=== PATIENT | female | born 1985 | race Hispanic/Latino ===

== ENCOUNTER 2017-05-31 18:36 | Day surgery (SDC) | payer OTHER ==
[2017-05-31 19:05] VITALS: BP 123/70; TEMP 99.2
--- NOTE | 2017-05-31 19:35 | PDOC.LDHP ---
Labor and Delivery H&P Chief complaint: abdominal pain HPI: 31 yo at 21.4 presents with complaint of abdominal pain and n/v for 2 days. Associated symptoms include urinary back pain, frequency and dysuria. She was treated with macrobid within the past 2 weeks for a UTI. She denies fever, vaginal blood or other discharge. Current gestational age (weeks): 21 (21.4) Due date: 10/07/17 Grav: 4 Para: 3 Current complications: none Current medications: pre-marilu vitamins Social history: none - Physical Exam Vital signs reviewed and normal: yes General: resting Heart: RRR Lungs: CTAB Abdomen: gravid (Mild suprapubic tenderness. Uterine fundus non tender. No palpable contractions) Extremeties: no edema - Assessment Concern for UTI vs pyelo. Ddx also includes gastroenteritis - Plan -: Will order UA, pending results treat with abx and consider renal imaging Zofran for n/v <Bridger Ferguson - Last Filed: 05/31/17 19:33> <Hitesh Allen - Last Filed: 06/29/17 14:34> Allergies/Adverse Reactions: Allergies Allergy/AdvReac Type Severity Reaction Status Date / Time No Known Allergies Allergy Verified 05/31/17 20:18 Attending Addendum - Attending Addendum Date/Time: 06/29/17 1432 I personally evaluated the patient and discussed the management with Dr. Ferguson on 05/31/17. I agree with the History, Examination, Assessment and Plan documented above with any addition or exceptions noted below. 31 yo at 21.4 wks EGA with recent UTI treated with Macrobid here with abdominal pain, Nausea for evaluation for AGE vs. Biliary Colic vs. persistent UTI. Check UA and RUQ US. <Hitesh Allen - Last Filed: 06/29/17 14:34>
[2017-05-31 19:36] VITALS: BMI 36.3
[2017-05-31] MEDS ORDERED: Ondansetron ODT 4 MG TAB PO PRN (19:50)
[2017-05-31 20:13] LABS: Bilirubin Negative (Negative); Blood, Urine Negative (Negative); Clarity CLEAR (Clear); Glucose, Urine (Dipstick) Negative (Negative); Leukocyte Negative (Negative); Nitrite Negative (Negative); Protein, Urine (Dipstick) Negative (Neg-Trace); Specific Gravity, Urine 1.006 (1.002-1.036); Urobilinogen 0.2 mg/dL (0.2-1.0)
[2017-05-31 21:45] LABS: #Eosinphils 0.2 thou/uL (0.0-0.7); #Lymphocytes 0.9 thou/uL (1.20-3.40); #Monocytes 0.6 thou/uL (0.11-0.59); #Neutrophils 5.3 thou/uL (1.40-6.50); %Basophils 0.7 % (0.0-1.0); %Eosinophils 2.3 % (0.0-10.0); %Lymphocytes 13.1 % (21.0-51.0); %Monocytes 8.2 % (0.0-10.0); %Neutrophils 75.8 % (42.0-75.0); Hemoglobin 10.8 g/dL (12.0-16.0); Mean Corpuscular HGB CONC 33.7 g/dL (32.0-36.0); Mean Corpuscular Hemoglobin 28.8 pg (27.0-31.0); Mean Corpuscular Volume 85.4 fl (81.0-99.0); Mean Platelet Volume 6.6 fL (7.4-10.4); Platelet Count 206 thou/uL (130-400); RBC Distribution Width 12.3 % (11.5-14.5); Red Blood Cell (RBC) Count 3.76 mill/uL (4.20-5.40); White Blood Cell (WBC) Count 6.9 thou/uL (4.8-10.8)
[2017-05-31 22:08] LABS: ALT (SGPT) 12 U/L (8-55); AST (SGOT) 12 U/L (5-34); Albumin 3.4 g/dL (3.5-5.0); Alkaline Phosphatase 83 U/L (40-150); Anion Gap 10 mmol/L (10-20); BUN (Urea Nitrogen) Less than 4 mg/dL (7.0-18.7); Bilirubin, Total 0.3 mg/dL (0.2-1.2); Calc. Creatinine Clearance 260 mL/min (70-130); Calcium 8.7 mg/dL (7.8-10.44); Carbon Dioxide 22 mmol/L (22-29); Chloride 106 mmol/L (98-107); Estimated GFR-MDRD Greater than 90; Globulin 3.2 g/dL (2.4-3.5); Glucose 96 mg/dL (70-105); Potassium 3.2 mmol/L (3.5-5.1); Protein, Total 6.6 g/dL (6.0-8.3); Sodium 135 mmol/L (136-145)
[2017-05-31] MEDS ORDERED: Acetaminophen 500 MG TAB PO SCH (22:30)
--- NOTE | 2017-06-01 00:07 | ULT ---
RIGHT UPPER QUADRANT ULTRASOUND 05/31/17 CLINICAL HISTORY: Abdominal pain. Biliary colic. FINDINGS: There is no focal hepatic lesion. Low level echoes of the gallbladder lumen are present which may be on the basis of sludge and/or gravel-like cholelithiasis. Badillo's sign report is negative by the son ographer. Common duct is normal measuring 4 mm in diameter. Incidental note of mild prominence of the right renal collecting system of indeterminate etiology. IMPRESSION: 1. Findings which may be related to gallbladder sludge and/or noncalcified gravel-like cholelith iasis. 2. Mild prominence of right renal collection system. Correlate clinically. POS: [facility]
--- NOTE | 2017-06-01 01:01 | PDOC.LDPN ---
Labor & Delivery Progress Note - Subjective Subjective: comfortable - Objective Vital signs reviewed and normal: yes General: NAD, resting Uterine fundus: non tender - Assessment (1) Gastroenteritis Code(s): K52.9 - NONINFECTIVE GASTROENTERITIS AND COLITIS, UNSPECIFIED Current Visit: Yes Status: Acute Comment: Most likely viral in nature. Discussed the importance of oral hydration. Return if pain worsens or if new symptoms develop. US shows possible gallbladder sludge, non dilated CBD.
== END 2017-06-01 01:15 | disposition home or self-care (01) ==
LOC: L&D/OP 18:36
PROVIDERS: ATTEND Family Medicine
DX: O99.612 Diseases of the digestive system complicating pregnancy, second trimester (principal); K52.9 Noninfective gastroenteritis and colitis, unspecified; Z3A.21 21 weeks gestation of pregnancy; Z79.899 Other long term (current) drug therapy
CPT/HCPCS: 51701; 76705; 80053; 81003; 85025; 87086; 96360; 99284; Q0162

== ENCOUNTER 2017-10-09 04:23 | Inpatient (IN) | payer MEDICAID, OTHER, SELFPAY ==
[2017-10-09 04:57] VITALS: BMI 39.2
[2017-10-09] MEDS ORDERED: Diphenoxylate HCl/Atropine Tablet PO PRN (04:59)
[2017-10-09] MEDS ORDERED: Ibuprofen 800 MG TAB PO PRN (04:59)
[2017-10-09] MEDS ORDERED: Methylergonovine 0.2 MG/ML VIAL IM PRN (04:59)
[2017-10-09] MEDS ORDERED: Lidocaine 1% (PF) 30 ML VIAL SC PRN (04:59)
[2017-10-09] MEDS ORDERED: NS / Oxytocin 40 units/1000ml 1,000 ML IV PRN (04:59)
[2017-10-09] MEDS ORDERED: Misoprostol 200 MCG TAB PR PRN (04:59)
[2017-10-09] MEDS ORDERED: Carboprost 250 MCG/ML AMP IM PRN (04:59)
[2017-10-09] MEDS ORDERED: Ondansetron HCl/PF 4 MG/2 ML Vial IVP PRN (05:09)
[2017-10-09] MEDS ORDERED: Promethazine HCl 25 MG/ML VIAL IM PRN (05:09)
[2017-10-09] MEDS ORDERED: Lactated Ringer's 1,000 ML IV SCH (05:15)
[2017-10-09 05:42] LABS: Hemoglobin 11.8 g/dL (12.0-16.0); Mean Corpuscular HGB CONC 34.9 g/dL (32.0-36.0); Mean Corpuscular Hemoglobin 29.9 pg (27.0-31.0); Mean Corpuscular Volume 85.7 fL (78.0-98.0); Mean Platelet Volume 6.7 fL (7.4-10.4); Platelet Count 214 thou/uL (130-400); RBC Distribution Width 12.5 % (11.5-14.5); Red Blood Cell (RBC) Count 3.95 mill/uL (4.20-5.40); White Blood Cell (WBC) Count 8.8 thou/uL (4.8-10.8)
[2017-10-09 06:11] LABS: HBSAg Index 0.14 S/CO (0-0.99); Hep B Surf Ag Non-Reactive S/CO (NonReactive); Syphilis Antibody Nonreactive (Nonreactive); Syphilis Antibody Index 0.06 S/CO (<1.00 Non-Reactive)
--- NOTE | 2017-10-09 07:07 | PDOC.LDPN ---
Labor & Delivery Progress Note - Subjective Subjective: painful contractions - Objective Vital signs reviewed and normal: yes General: NAD Uterine fundus: non tender Dilation: 6 Effacement: 90% Station: -1 FHT: category 1 [place] contractions every: 2-3 -: 31 yo at 40.2 by 13.3 U/S admitted for labor. 1. SIUP, active labor -/-2 @ 04:44 with contractions q2-3min -/-1 @0700 with contractions q2-3 min -does not want epidural -Cat I tracing, GBS (-) -Fetus confirmed cephalic by sono, anterior placenta, grossly normal CATRACHITO 2. 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 will need follow up with Dr. Lay in 2 weeks if not required transfer. 3. Rubella non-immune -MMR post 4. BMI 39 -Recommend diet, exercise, breast feeding -Monitor/be prepared for labor complications including dystocias 5. Iron deficiency anemia -Currently taking ferrous sulfate 325mg, will continue as prescribed and needed 6. Threatened AB/First trimester VB -Resolved, no current concern
[2017-10-09] MEDS: Acetaminophen 500 MG TAB PO PRN ×3 (07:23→20:55)
--- NOTE | 2017-10-09 08:24 | PDOC.LDPN ---
Labor & Delivery Progress Note - Subjective Subjective: comfortable - Objective Vital signs reviewed and normal: yes General: NAD, resting Dilation: 8 Effacement: 100% Station: -1 FHT: category 1 [place] contractions every: 3-4min Other exam findings: FHT 140s, moderate variability, accels present, no decels Plan: continue plan of care -: 31 yo at 40.2 by 13.3 U/S admitted for labor. 1. SIUP, active labor -50/-2 @ 04:44 with contractions q2-3min -690/-1 @0700 with contractions q2-3 min -8100/-1 @0815 with contractions q3-4 min -does not want epidural -Cat I tracing, GBS (-) -Fetus confirmed cephalic by sono, anterior placenta, grossly normal [place]O 2. 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 will need follow up with Dr. Lay in 2 weeks if not required transfer. 3. Rubella non-immune -MMR post 4. BMI 39 -Recommend diet, exercise, breast feeding -Monitor/be prepared for labor complications including dystocias 5. Iron deficiency anemia -Currently taking ferrous sulfate 325mg, will continue as prescribed and needed 6. Threatened AB/First trimester VB -Resolved, no current concern
--- NOTE | 2017-10-09 09:05 | PDOC.OPDEL ---
OB Operative/Delivery Note Delivery Dr/Surgeon: Pepper Pastrana ([place]) Assist: Attending: Pope Nixon Pre-Delivery Diagnosis: active labor Procedure/Post Delivery Dx: spontaneous vaginal delivery Weeks gestation: 40 (40.2) Anesthesia: none - Findings A Sex: male - 1 min: 8 - 5 min: 9 - Additional Findings/Plan Placenta delivered: spontaneous Repaired Obstetrical Laceration: none Estimated blood loss: 250ml Compilations/Other Findings: Delivering Physician: Pepper Pastrana ([place]) Attending: Pope Nixon Procedure: Spontaneous Vaginal Delivery Anesthesia: none EBL: 250 ml Pre-op Diagnosis: 1. Term intrauterine in labor 2. Hx of iron deficiency anemia 3. rubella non-immune Post-op Diagnosis: 1. Term intrauterine , delivered 2. Hx of iron deficiency anemia 3. rubella non-immune Indications: A 31 y/o female now P4004 presents in active labor. Delivery Note: This is 31yo F now P4004 @40.2wks who delivered a viable M infant at 0845 on 10/09/2017. Following an uneventful antepartum course , a vigorous M was delivered over an intact perineum in the occipitoanterior position. Anterior Shoulder and then remainder of the body delivered. No nuchal cord. The head was held down and mouth and nares were bulb suctioned. Cord clamped and cut and cord blood collected. Placenta delivered intact via jenn mechanism with a 3 vessel cord noted. Fundal massage was performed and the fundus was firm. The cervix and vagina were inspected and found to be free of lacerations. Infant will be admitted to NICU for close monitoring regarding congenital pulmonary malformation. Apgars were 8/9 at 1 & 5 minutes, respectively. Patient tolerated delivery well and went to after routine recovery/care. Post delivery plan: routine recovery <Hitesh Joy - Last Filed: 10/09/17 09:17> Attending Addendum - Attending Addendum Date/Time: 10/12/17 9918 I was present and supervised the of a viable male infant to this 31 yo @ 40.2 weeks. Apgars 8/9. Placenta delivered spontaneously and intact; 3V cord. No epis or lacerations. EBL 250 Ml. and mother in stable condition. <Leonie Nixon - Last Filed: 10/12/17 23:18>
[2017-10-09] MEDS ORDERED: diphenhydrAMINE 25 MG CAP PO PRN (10:24)
[2017-10-09] MEDS ORDERED: Milk Of Magnesia 30 ML UDCUP PO PRN (10:24)
[2017-10-09] MEDS ORDERED: Bisacodyl 10 MG SUPP PR PRN (10:24)
[2017-10-09] MEDS ORDERED: Adacel (T-DAP) 0.5 ML VIAL IM ONE (10:24)
[2017-10-09] MEDS ORDERED: Measles/Mumps/Rubella 10 MCG/0.5 ML VIAL SC ONE (10:24)
[2017-10-09] MEDS ORDERED: NS / Oxytocin 40 units/1000ml 1,000 ML IV SCH (10:24)
[2017-10-09] MEDS ORDERED: Prenatal Vitamin 1 TAB PO SCH (10:45)
[2017-10-09] MEDS ORDERED: Ketorolac Tromethamine 30 MG/ML VIAL IVP SCH (10:45)
[2017-10-09] MEDS ORDERED: Docusate Calcium (SURFAK) 240 MG CAP PO SCH (10:45)
[2017-10-09] MEDS: Ibuprofen 800 MG TAB PO SCH ×2 (14:58→17:09)
[2017-10-09] MEDS: Ferrous Sulfate 325 MG TAB PO SCH (17:00)
[2017-10-09] MEDS: Docusate Calcium (SURFAK) 240 MG CAP PO SCH (20:55)
[2017-10-10] MEDS: Ibuprofen 800 MG TAB PO SCH ×4 (00:10→21:09)
--- NOTE | 2017-10-10 07:02 | PDOC.PP ---
Post Progress Note Post Day #: 1 Subjective: 31 yo now 4004 s/p yesterday at 845. No complications. EBL 250ml. Pt did well overnight. Pain controlled this am. PO intake tolerated: yes Flatus: yes Ambulation: yes Vital Signs (12 hours) Temp Pulse Resp BP 10/10/17 00:00 98.0 F 66 18 10/09/17 20:00 98.0 F 66 18 101/59 L Weight Weight 110.223 kg - Physical Examination General: NAD Cardiovascular: no m/r/g, RRR Respiratory: clear to auscultation bilaterally Abdominal: + bowel sounds, lochia (minimal) Fundus firm & at: umbilicus Neurological: no gross focal deficits Psychiatric: A&Ox3, normal affect Result Diagrams: 10/09/17 05:26 Additional Labs: Post Labs Blood Type A POSITIVE 10/09/17 05:26 Hep Bs Antigen Non-Reactive S/CO (NonReactive) 10/09/17 05:26 (1) BMI 39.0-39.9,adult Code(s): Z68.39 - BODY MASS INDEX (BMI) 39.0-39.9, ADULT Status: Acute (2) Iron deficiency anemia Code(s): D50.9 - IRON DEFICIENCY ANEMIA, UNSPECIFIED Status: Acute (3) , high-risk Code(s): O09.90 - SUPERVISION OF HIGH RISK , UNSP, UNSP TRIMESTER Status: Acute (4) Rubella non-immune status, antepartum Code(s): O99.89 - OTH DISEASES AND CONDITIONS COMPL PREG/CHLDBRTH; Z28.3 - UNDERIMMUNIZATION STATUS Status: Acute (5) Normal spontaneous vaginal delivery Code(s): O80 - ENCOUNTER FOR FULL-TERM UNCOMPLICATED DELIVERY Status: Acute - Assessment/Plan 31 yo at 40.2 by 13.3 U/S admitted for labor now s/p on 10/09 @ 845. 1. sIUP, active labor, delivered -PPD 1 -continue motrin scheduled and tylenol prn -encourage ambulation -tolerating a normal diet -passing flatus - infant and doing well. 2. 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 Rubella non-immune -MMR post 4. BMI 39 -Recommend healthy diet, exercise, breast feeding -Monitor/be prepared for labor complications including dystocias -LGA 5. Iron deficiency anemia -Currently taking ferrous sulfate 325mg, will continue as prescribed and needed 6. Threatened AB/First trimester VB -Resolved, no current concern <Pepper Bai - Last Filed: 10/11/17 09:09> Weight Weight 110.223 kg Result Diagrams: 10/09/17 05:26 Additional Labs: Post Labs Blood Type A POSITIVE 10/09/17 05:26 Hep Bs Antigen Non-Reactive S/CO (NonReactive) 10/09/17 05:26 <Leonie Nixon - Last Filed: 10/12/17 23:22> Attending Addendum - Attending Addendum Date/Time: 10/12/17 6989 I personally evaluated the patient and discussed the management with Dr. St on 10/10/2017 I agree with the History, Examination, Assessment and Plan documented above with any addition or exceptions noted below- Patient without complaints. Tolerating diet and ambulating. Afebrile VSS. 1) PPD#1 s/p - continue routine care. Plan to monitor till tomorrow due to CPAM in infant <Leonie Nixon - Last Filed: 10/12/17 23:22>
[2017-10-10] MEDS: Ferrous Sulfate 325 MG TAB PO SCH ×2 (07:22→15:56)
[2017-10-10] MEDS: Docusate Calcium (SURFAK) 240 MG CAP PO SCH ×2 (07:38→21:09)
[2017-10-10] MEDS: Prenatal Vitamin 1 TAB PO SCH (07:38)
[2017-10-11] MEDS ORDERED: HYDROcodone/Acetaminophen 5/325 mg Tablet PO SCH (03:45)
[2017-10-11] MEDS: Ibuprofen 800 MG TAB PO SCH (05:42)
--- NOTE | 2017-10-11 07:21 | PDOC.PP ---
Post Progress Note Post Day #: 2 Subjective: 31 yo -->4 s/p at 40.2 wks to a LGA male. Mom doing well. Mild pain this am. Mom would like the baby to follow-up at [facility] and she would like to follow-up there as well once she gets [facility]IP. She requested some ibuprofen sent in for pain prn. PO intake tolerated: yes Flatus: yes Ambulation: yes Vital Signs (12 hours) Temp Pulse Resp BP 10/10/17 20:00 98.2 F 71 16 110/75 Weight Weight 110.223 kg - Physical Examination General: NAD Cardiovascular: no m/r/g, RRR Respiratory: clear to auscultation bilaterally Abdominal: + bowel sounds, lochia (minimal) Fundus firm & at: umbilicus Neurological: no gross focal deficits Psychiatric: A&Ox3 Result Diagrams: 10/09/17 05:26 Additional Labs: Post Labs Blood Type A POSITIVE 10/09/17 05:26 Hep Bs Antigen Non-Reactive S/CO (NonReactive) 10/09/17 05:26 (1) BMI 39.0-39.9,adult Code(s): Z68.39 - BODY MASS INDEX (BMI) 39.0-39.9, ADULT Status: Acute (2) Iron deficiency anemia Code(s): D50.9 - IRON DEFICIENCY ANEMIA, UNSPECIFIED Status: Acute (3) , high-risk Code(s): O09.90 - SUPERVISION OF HIGH RISK , UNSP, UNSP TRIMESTER Status: Acute (4) Rubella non-immune status, antepartum Code(s): O99.89 - OTH DISEASES AND CONDITIONS COMPL PREG/CHLDBRTH; Z28.3 - UNDERIMMUNIZATION STATUS Status: Acute (5) Normal spontaneous vaginal delivery Code(s): O80 - ENCOUNTER FOR FULL-TERM UNCOMPLICATED DELIVERY Status: Acute - Assessment/Plan 31 yo at 40.2 by 13.3 U/S admitted for labor now s/p on 10/09 @ 845. 1. sIUP, HR, delivered -PPD 2 -will send in prescription for 800mg ibuprofen q8h prn -plan for dc today 3. Rubella non-immune -MMR today 4. BMI 39 -Recommend healthy diet, exercise, breast feeding -Monitor/be prepared for labor complications including dystocias -LGA 5. Iron deficiency anemia -Currently taking ferrous sulfate 325mg, will continue as prescribed and needed DC today with follow-up at [facility] in 2 weeks and at [facility] at 6 weeks once pt obtains [facility].
[2017-10-11] MEDS: Ferrous Sulfate 325 MG TAB PO SCH (07:29)
[2017-10-11 07:56] VITALS: BP 100/60; TEMP 98.3
[2017-10-11] MEDS: Prenatal Vitamin 1 TAB PO SCH (09:09)
[2017-10-11] MEDS ORDERED: Measles/Mumps/Rubella 10 MCG/0.5 ML VIAL SC ONE (09:10)
[2017-10-11] MEDS: Docusate Calcium (SURFAK) 240 MG CAP PO SCH (09:10)
== END 2017-10-11 13:30 | disposition home or self-care (01) | DRG 775 ==
LOC: L&D/OP 04:23 → L&D 05:05 → 3SW 11:08
PROVIDERS: ADMIT Student in an Organized Health Care Education/Training Program; ATTEND Student in an Organized Health Care Education/Training Program
PROC: 10E0XZZ Delivery of Products of Conception, External Approach (ICD-10-PCS; principal; 2017-10-09)
DX: O36.63X0 Maternal care for excessive fetal growth, third trimester, not applicable or unspecified (principal); O99.02 Anemia complicating childbirth; D64.89 Other specified anemias; Z37.0 Single live birth; Z3A.40 40 weeks gestation of pregnancy; O48.0 Post-term pregnancy
CPT/HCPCS: 36415; 85027; 86780; 86850; 86900; 86901; 87340; 88307; 90707; 99285; A4216; J1885; J2001